=== PATIENT | male | born 1980 | race Caucasian/White ===

== ENCOUNTER 2021-04-27 15:00 | Outpatient (RCR) | payer OTHER, SELFPAY ==
--- NOTE | 2021-04-19 17:52 | MHC.PT.EP ---
[facility] [place] Office [address] Wayne Peters [address] [phone] F: [phone] F: [phone] F: [phone] F: [phone] Physical Therapy Plan of Care Date of Evaluation: Date of Surgery: n/a Diagnosis: Pain in R shoulder Assessment: Patient is a 40 year old male presenting to PT with complaints of pain in his R shoulder. Pt reports onset of pain began about 1 year ago due to insidious onset and states it has just kind of gradually came on over time. He presents today with impairments in pain, +impingement tests, posture, and periscapular strength. 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 Clinical presentation today is most consistent with signs and sx associated with possible R shoulder impingement with possible RC tendonitis and pt will benefit from skilled PT to address the following problems and impairments noted upon evaluation: pain, +impingement tests, posture, and periscapular strength. These problems limit the patient with the following functional activities: reaching OH, throwing, work, ADLs. The prescribed treatment plan of care is medically necessary. Co-morbidities of HTN were identified and taken into considerations of plan of care. Pt was educated on HEP, role of PT, prognosis, POC, shoulder anatomy. Frequency and Duration: The patient will be seen 2 x week x 4 weeks Short Term Goals: Pt will demonstrate full pain free shoulder AROM equal B in 2 weeks for improved ability to reach OH. Pt will demonstrate 5/5 shoulder and periscapular strength with min to no pain in 2 weeks for improved UE strength. Pt will demonstrate improved postural awareness by sitting with biomechanically correct posture without cues throughout session to improve overall postural function in 2 weeks. 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 Pt will demonstrate ability to complete all reaching OH ADLs with min to no pain in 4 weeks to allow return to PLOF. Pt will demonstrate improved SPADI score by 13 points in 4 weeks for improved UE functional mobility. Treatment Plan: Modalities to reduce pain, spasms and effusion. Manual therapy to restore motion and function. Therapeutic exercise to improve strength and flexibility. Neuromuscular re-education for posture and balance. Therapeutic activities to return to functional activities of daily living. Electronically signed by: Natalie Harden, PT, DPT, ATC Please sign and return to therapist. Thank you for your referral.
--- NOTE | 2021-05-09 15:26 | MHC.PT.DC ---
[facility] [place] [facility] [place] Office [place] [address] Wayne Peters [address] [phone] F: [phone] F: [phone] F: [phone] F: [phone] Physical Therapy Discharge Report Diagnosis: Pain in R shoulder Date of Surgery: n/a Date of Evaluation: 04/19/21 Date of Discharge: 05/09/21 Treatments to Date: 2 Cancellations to Date: 2 No Shows to Date: 0 Discharge Status: Patient Elected to Stop Discharge Summary: Pt has self d/c from skilled PT due to work conflicts. Electronically signed by: Natalie Harden, PT, DPT, ATC Please sign and return to therapist. Thank you for your referral.
== END 2021-05-09 15:28 | disposition home or self-care (01) ==
LOC: HO.PT 15:00
PROVIDERS: PCP Internal Medicine; Visit Provider Internal Medicine
DX: M25.511 Pain in right shoulder (principal)
CPT/HCPCS: 97014; 97110; 97161

== ENCOUNTER 2023-02-01 14:12 | Outpatient (AMB) | payer OTHER, SELFPAY ==
--- NOTE | 2023-02-01 14:14 | AM.OFFWIN_ITS ---
Intake Vital Signs 02/01/23 14:17 Height 5 ft 9 in Weight 259 lb BMI 38.2 BP 120/90 H Blood Pressure Location Rt brachial Position Sitting Pulse 74 Pulse Source Pulse Oximeter Temp 97.8 F Temp Source Temporal Artery Scan Pulse Oximetry (%) 97 Oxygen Delivery Method Room Air Intake Visit Reasons: RUNNER OUT, swelling left side of face Intake Note: Patient here for left face swelling. he states he went to the dentist on saturday and was started on antibiotics(amox 500mg for 10 days) he just wants to make sure its nothing serious. Patient Tobacco Use Status: Never used Tobacco Allergies No Known Allergies Allergy (Unknown, Verified 02/01/23 14:19) NOT APPLICABLE Do you need a note to return to daycare/school/sports/work: No HPI HPI Comments 2 History of Present Illness Details This is a 42-year-old male who presents to the office today for sick visit. Patient complaining of worsening left-sided facial swelling x4 days. atient states he had left-sided facial swelling that started approximately 4 days ago. Patient states he was seen by his dentist 4 days ago and he was started on amoxicillin for a dental infection. He states he has been taking this medication as prescribed. He states the facial swelling has been slowly worsening over the past 2 days. He denies any throat swelling, difficulty swallowing, shortness of breath, or wheezing. He denies any fevers or chills. Of note, patient has taken penicillin and he believes amoxicillin in the past without difficulty. [facility] Medical History Chronic GERD Class 2 obesity with body mass index (BMI) of 37.0 to 37.9 in adult Essential hypertension Mild persistent asthma, uncomplicated Right shoulder pain Surgical History No pertinent past surgical history Family History Father Hypertension Mother No problems noted. Maternal Grandfather Cancer Hypertension Diabetes Stroke Brother Drug overdose Family/Other FH: mental illness Social History (Updated 01/16/22 @ 16:21 by Pily Carrera MD) Housing: House Alcohol intake: current Alcohol intake frequency: a few times a month Alcohol type: beer, wine and hard liquor Patient Tobacco Use Status: Never used Tobacco e-Cigarette/Vaping Use: Never Used Second Hand Smoke Exposure: No service: No Current occupational status: unemployed Cognitive needs: No Hearing needs: No Vision needs: No Review of Systems Const All systems reviewed & are unremarkable except as noted in HPI and below Reports no additional complaints Eyes Reports no additional complaints ENT Reports no additional complaints Card Reports no additional complaints Resp Reports no additional complaints GI Reports no additional complaints Reports no additional complaints Musc Reports no additional complaints Skin/Breast Reports system reviewed and no additional complaints, except as documented Neuro Reports no additional complaints Psych Reports no additional complaints Endo Reports no additional complaints Hernando/Lymph Reports no additional complaints Aller/Immun Reports no additional complaints Physical Exam Vital Signs: Last Vital Signs Temp 97.8 F 02/01/23 14:17 Pulse 74 02/01/23 14:17 BP 120/90 H 02/01/23 14:17 Pulse Ox 97 02/01/23 14:17 Oxygen Delivery Method Room Air 02/01/23 14:17 BMI result Body Mass Index 38.2 Const General: cooperative, healthy appearing, no acute distress and well developed Orientation/consciousness: patient oriented x3 HEENT Other: Left-sided facial swelling of the cheek and periorbital area. No erythema or rash. Mild gingivitis of the left upper posterior teeth. No edema of the posterior oral pharynx or tonsils. Head: Yes normal to inspection Ears: hearing grossly normal bilaterally General nose exam: Normal external nose present Mouth: Normal oral and palatal mucosa present Teeth and gingiva: gingiva abnormal edematous and diffusely erythematous Throat: Yes posterior oropharynx normal, Yes tonsils normal, No peritonsillar mass, No uvula laterally displaced and No uvular edema Eyes General: appearance normal, both eyes and all related structures Pupils: Equal, round and reactive pupils present EOM: EOMs intact bilaterally Resp Effort & Inspection: normal respiratory effort and no respiratory distress Auscultation: clear to auscultation bilaterally Cardio Rate: regular rate Rhythm: regular rhythm Heart sounds: no gallops, no murmurs and no rubs Peripheral pulses: Peripheral pulses 2+ throughout GI Inspection: No distended Palpation (GI): Soft to palpation and nontender Auscultation: normal bowel sounds Skin General skin exam: no rashes or lesions noted Neuro General: patient oriented x3 Cranial nerves: Yes CN's II-XII intact bilaterally and Yes Equal, round and reactive pupils present Gait exam (Neuro): Normal gait present Motor exam (neuro): 5/5 motor strength present throughout Extrem General: Yes normal to inspection, Yes full ROM and Yes no clubbing, cyanosis or edema Psych Appearance: grossly normal Mental Status: mental status grossly normal Assessment & Plan Assessment & Plan (1) Dental infection: Code(s): K04.7 - Periapical abscess without sinus Plan: This is a 42-year-old male presenting with worsening left-sided facial swelling x4 days. He was started on p.o. amoxicillin for a dental infection but states that this facial swelling is still worsening. He appears to have a mild gingivitis of the left upper posterior teeth. Of note, angioedema was considered given his facial swelling seemed to worsen after he was given amoxicillin but patient confirms that he has taken penicillin and he believes amoxicillin in the past. He has no erythema or rash to suggest an allergic etiology. He denies any throat swelling, trouble/difficulty swallowing, shortness of breath, or wheezing. Patient was switched to p.o. amoxicillin clavulanate for more anaerobic coverage. He was advised to proceed directly to the emergency room if he were to develop worsening swelling, throat swelling, difficulty/trouble swallowing, difficulty breathing, or wheezing. Patient verbalizes his understanding and he is in agreement with the plan. Medications: New amoxicillin-pot clavulanate 875-125 mg 1 tab PO BID 14 tabs 0RF Coding Level of Care Code Est Pt Level 3 (02627) Diagnoses Dental infection K04.7
[2023-02-01 14:17] VITALS: BP 120/90; PULSE 74; TEMP 36.6; O2SAT 97; BMI 38.2
== END 2023-02-01 14:56 | disposition home or self-care (01) ==
PROVIDERS: PCP Internal Medicine; Visit Provider Physician Assistant Medical
DX: K04.7 Periapical abscess without sinus (principal)
CPT/HCPCS: 99213

== ENCOUNTER 2023-02-03 05:23 | Emergency (ER) | payer OTHER, SELFPAY ==
[2023-02-03 05:24] VITALS: BP 134/93; PULSE 81; RESP 18; TEMP 37.2; O2SAT 96; BMI 37.1
--- NOTE | 2023-02-03 05:29 | ED_ITS ---
HPI - General Adult General Chief complaint: Dental/Oral Stated complaint: allergic reaction Time Seen by Provider: 02/03/23 05:28 Source: patient Mode of arrival: ambulatory Limitations: no limitations History of Present Illness HPI narrative: Patient presents with swelling and dental pain. Symptoms started several days ago. Was started on amoxicillin and told might be a wisdom tooth. His plans to be extracted over the next week. However, over the past day or so he has had increasing swelling to left side of his face, itching over his face. He denies any difficulty breathing or swallowing. He is able to control his secretions. He denies any fevers or chills. Pain is moderate nature. There is no clear relieving or exacerbating features. Patient was seen yesterday the day before yesterday. Switch from amoxicillin to Augmentin. Had not yet started that prescription. Related Data Previous Rx's Medication Instructions Recorded fluticasone propionate 50 1 spray intranasal DAILY #16 mL 12/25/20 mcg/actuation nasal spray,suspension omeprazole 20 mg capsule,delayed 20 mg PO DAILY 90 days #90 caps 09/04/21 release fluticasone propionate 44 1 puff inhalation BID 30 days 10/05/21 mcg/actuation HFA aerosol inhaler #10.6 grams (Flovent HFA) erythromycin 5 mg/gram (0.5 %) eye 1 appl ophthalmic (eye) DAILY 5 05/29/22 ointment days #3.5 grams albuterol sulfate 90 mcg/actuation 2 puff inhalation Q6H PRN 06/18/22 aerosol inhaler (ProAir HFA) shortness of breath or wheezing 30 days #6.7 grams Ventolin HFA 90 mcg/actuation 2 puff inhalation Q6H PRN 07/17/22 aerosol inhaler (albuterol sulfate) shortness of breath or wheezing 30 days #8 grams amlodipine 10 mg tablet 10 mg PO DAILY 90 days #90 tabs 08/10/22 lisinopril 10 mg tablet 10 mg PO DAILY #30 tabs 10/08/22 amoxicillin 875 mg-potassium 1 tab PO BID #14 tabs 02/01/23 clavulanate 125 mg tablet Allergies Allergy/AdvReac Type Severity Reaction Status Date / Time No Known Allergies Allergy Unknown NOT Verified 02/03/23 05:29 APPLICABLE Review of Systems Review of Systems: CONSTITUTIONAL: Denies weight loss, fever and chills. HEENT: Denies changes in vision and hearing. Dental pain RESPIRATORY: Denies SOB and cough. CV: Denies palpitations no CP. GI: Denies abdominal pain, nausea, vomiting and diarrhea. : Denies dysuria and urinary frequency. MSK: Denies myalgia and joint pain. SKIN: Denies rash and pruritus. NEUROLOGICAL: Denies headache and syncope. PSYCHIATRIC: Denies recent changes in mood. Denies anxiety and depression. All other ROS are negative unless in HPI [facility] Past Medical History Medical History Chronic GERD Class 2 obesity with body mass index (BMI) of 37.0 to 37.9 in adult Essential hypertension Mild persistent asthma, uncomplicated Right shoulder pain Surgical History No pertinent past surgical history Family History Family History Father Hypertension Mother No problems noted. Maternal Grandfather Cancer Hypertension Diabetes Stroke Brother Drug overdose Family/Other FH: mental illness Social History Social History Housing: House Alcohol intake: current Alcohol intake frequency: holidays/special occasions only Alcohol type: beer Patient Tobacco Use Status: Never used Tobacco e-Cigarette/Vaping Use: Never Used Second Hand Smoke Exposure: No service: No Current occupational status: unemployed Cognitive needs: No Hearing needs: No Vision needs: No Physical Exam ED Vital Signs: Vital Signs - 24 hr 02/03/23 05:24 02/03/23 05:34 Temperature 99.0 F 97.9 F Pulse Rate 81 79 Respiratory Rate 18 17 Blood Pressure 134/93 H 130/88 Pulse Oximetry 96 95 Oxygen Delivery Method Room Air Room Air BMI result Body Mass Index 37.1 GEN: Well developed, no acute distress, alert, oriented HEENT: Normocephalic, atraumatic, normal external ears, nose appears normal no oropharyngeal edema, no tonsillar enlargement, no she fluctuant surfaces, dental fillings in place, left facial swelling Eyes: Normal to appearance Neck: Supple, no lymphadenopathy Respiratory: Talks in complete sentences, no respiratory distress Extremities: No clubbing cyanosis or edema Neurologic: No focal neurologic deficits, cranial nerves 2-12 intact, gait normal Skin: No rash Medical Decision Making Medical Decision Making MDM Narrative: Patient presents with life facial swelling. This is possible for a dental infection. Patient will switch from amoxicillin to Augmentin. Will take anti- inflammatory pain medications. He does have some facial itching. I do not believe this represents an allergic reaction. Patient will start Zyrtec or Hayde which is available [id number]. He will return for any worsening or concerning symptoms. Differential Diagnosis Differential Diagnoses: The differential diagnosis associated with the presentation includes (Dental infection, sinusitis) Prescription Management I considered prescription management with: Pain Medication and Antibiotic Discharge Plan Discharge Clinical Impression: Dental abscess Patient Disposition: Home, Self-Care Instructions: Dental Abscess (ED) Additional Instructions: Stop amoxicillin Start amoxicillin with clavulanic acid Take Zyrtec or Hayde daily for 5-7 days Prescriptions: No Action fluticasone propionate 50 mcg/actuation spray,suspension 1 spray intranasal DAILY Qty: 16 4RF omeprazole 20 mg capsule,delayed release(DR/EC) 20 mg PO DAILY 90 Days Qty: 90 1RF erythromycin 5 mg/gram (0.5 %) ointment 1 appl ophthalmic (eye) DAILY 5 Days Qty: 3.5 0RF albuterol sulfate [ProAir HFA] 90 mcg/actuation HFA aerosol inhaler 2 puff inhalation Q6H PRN (Reason: shortness of breath or wheezing) 30 Days Qty: 6.7 0RF albuterol sulfate [Ventolin HFA] 90 mcg/actuation HFA aerosol inhaler 2 puff inhalation Q6H PRN (Reason: shortness of breath or wheezing) 30 Days Qty: 8 0RF amlodipine 10 mg tablet 10 mg PO DAILY 90 Days Qty: 90 3RF lisinopril 10 mg tablet 10 mg PO DAILY Qty: 30 6RF amoxicillin-pot clavulanate 875-125 mg tablet 1 tab PO BID Qty: 14 0RF Flovent HFA 44 mcg/actuation HFA aerosol inhaler 1 puff inhalation BID 30 Days Qty: 10.6 4RF Rx Instructions: administer with spacer Referrals: Physician,Unknown J [Primary Care Provider] - (Your dentist as scheduled)
[2023-02-03 05:34] VITALS: BP 130/88; PULSE 79; RESP 17; TEMP 36.6; O2SAT 95
== END 2023-02-03 05:52 | disposition home or self-care (01) ==
PROVIDERS: Emergency Provider Emergency Medicine
DX: K08.89 Other specified disorders of teeth and supporting structures (principal); K04.7 Periapical abscess without sinus
CPT/HCPCS: 99282; 99284

== ENCOUNTER 2024-08-10 16:55 | Outpatient (AMB) | payer OTHER, SELFPAY ==
[2024-08-10 17:03] VITALS: BP 150/90; BMI 37.5
--- NOTE | 2024-08-10 17:03 | MHC.PC.OV ---
Vital Signs 08/10/24 17:03 Height 5 ft 9 in Weight 254 lb BMI 37.5 BP 150/90 H Blood Pressure Location Lt brachial Position Sitting Intake Visit Reasons: BP follow up Intake Note: Patient here for a follow up BP Salvage Determiner Required: No Accompanied by: Self / Same As Patient Allergies No Known Allergies Allergy (Unknown, Verified 08/10/24 17:20) NOT APPLICABLE Medication List - Last Reconciled 08/10/24 by Pily Carrera MD amlodipine 10 mg PO DAILY 90 days fluticasone propionate 44 mcg/actuation 1 puff inhalation BID 30 days lisinopril 10 mg PO DAILY omeprazole 20 mg PO DAILY 90 days Ventolin HFA 90 mcg/actuation (albuterol sulfate) 2 puffs inhalation Q6H PRN 30 days NS Tobacco use date assessed: 08/10/24 Dental Screening Dental Screen Date: 08/10/24 Did you have a dental visit in the last 12 months?: No Did you have a dental problem in the last 6 months where you did not have access to dental care?: No Was dental information given to patient?: Patient has dentist HPI HPI Comments History of Present Illness Details The patient is a 43-year-old male presenting with management needs for elevated blood pressure, asthma, and right shoulder pain. He has a history of Essential Hypertension, previously controlled with amlodipine and lisinopril. Medication adherence was disrupted last year due to insurance issues, but recent resumption has led to symptomatic improvement. The patient reports leg swelling associated with amlodipine use. The patient's asthma is moderate persistent, requiring short-term inhaler use 4 times weekly. Management with a long-term inhaler was not sustained due to insurance changes. Gastroesophageal Reflux Disease (GERD) is managed with omeprazole. The patient reports right shoulder pain, suggesting rotator cuff involvement, which is aggravated by arm elevation and has not been improved due to a lapse in physical therapy attendance. [facility] Medical History (Updated 08/10/24 @ 17:35 by Pily Carrera MD) Class 2 obesity with body mass index (BMI) of 37.0 to 37.9 in adult Right shoulder pain Chronic GERD Essential hypertension Surgical History No pertinent past surgical history Family History Father Hypertension Mother No problems noted. Maternal Grandfather Cancer Hypertension Diabetes Stroke Brother Drug overdose Family/Other FH: mental illness Social History Housing: House Alcohol intake: current Alcohol intake frequency: holidays/special occasions only Alcohol type: beer Patient Tobacco Use Status: Never used Tobacco e-Cigarette/Vaping Use: Never Used Second Hand Smoke Exposure: No service: No Current occupational status: unemployed Cognitive needs: No Hearing needs: No Vision needs: No Questionnaire PHQ-9 Over the last 2 weeks, how often have you been bothered by any of the following problems? 1. Little interest or pleasure in doing things: not at all 2. Feeling down, depressed, or hopeless: not at all 3. Trouble falling or staying asleep, or sleeping too much: not at all 4. Feeling tired or having little energy: not at all 5. Poor appetite or overeating: not at all 6. Feeling bad about yourself - or that you are a failure or have let yourself or your family down: not at all 7. Trouble concentrating on things, such as reading the newspaper or watching television: not at all 8. Moving or speaking so slowly that other people could have noticed. Or the opposite - being so fidgety or restless that you have been moving around a lot more than usual: not at all 9. Thoughts that you would be better off or of hurting yourself in some way: not at all Total score: 0 Depression Screening Interpretation: Negative Depression Screening Done: Yes 98538 - PHQ-9 Billing: Yes Source: Developed by Drs. Robbi Zepeda, Narcisa Sánchez, Robbie Matthew and colleagues, with an educational oleksandr from [employer]. Thrive Questionnaire Date Thrive assessed: 08/10/24 I am a: Patient What is your living situation today?: I have a steady place to live Within the past 12 months, did the food you bought not last and you didn't have the money to get more?: Never true Within the past 12 months, did you worry whether your food would run out before you got money to buy more?: Never true Do you have trouble paying for medicines?: No Do you have trouble getting transportation to medical appointments?: No Do you have trouble paying your heating and electricity bill?: No Do you have trouble taking care of your child, family member or friend?: No Do you have trouble with day-to-day activities such as bathing, preparing meals, shopping, managing finances, etc.?: No Are you currently unemployed and looking for a job?: No Are you interested in more education?: No Please select the resources that you would like help with: None Currently or been in a relationship where the following occur: No concerns reported THRIVE Score: 0 AUDIT C Alcohol Use Questionnaire (AUDIT-C) 1. How often do you have a drink containing alcohol?: Monthly or less 2. How many drinks containing alcohol do you have on a typical day when you are drinking?: 1 or 2 3. How often do you have six or more drinks on one occasion?: Never Total Score: 1 Score Reviewed/Action Taken: No KANDICE-7 AMB Questionnaire KANDICE-7 Date KANDICE - 7 assessed: 08/10/24 Feeling nervous, anxious, or on edge: 0 = Not at all Not being able to stop or control worryin = Not at all Worrying too much about different things: 0 = Not at all Trouble relaxin = Not at all Being so restless that it is hard to sit still: 0 = Not at all Becoming easily annoyed or irritable: 0 = Not at all Feeling afraid as if something awful might happen: 0 = Not at all Total KANDICE-7 score (0-4 normal; 5-9 mild; 10-14 moderate; 15-21 severe): 0 Source: Developed by Drs. Robbi Zepeda, Narcisa Sánchez, Robbie Matthew and colleagues, with an educational oleksandr from [employer]. KANDICE-7 Assessment Billing KANDICE-7 Assessment Tool: KANDICE-7 Assessment 77719 Review of Systems Const All systems reviewed & are unremarkable except as noted in HPI and below Card Denies chest pain at rest, Denies chest pain with activity, Denies edema, Denies irregular heart rhythm, Denies claudication, Denies dyspnea, Denies dyspnea on exertion, Denies orthopnea, Denies paroxysmal nocturnal dyspnea and Denies slow heart rate Resp Denies cough, Denies dyspnea and Denies dyspnea on exertion GI Denies abdominal pain, Denies change in bowel habits, Denies excessive flatus, Denies nausea and Denies vomiting Musc Denies atrophy, Denies deformity, Reports arthralgias and Reports limited range of motion Physical exam (Primary Care) Vital Signs: Last Vital Signs BP 150/90 H 08/10/24 17:03 BMI result Body Mass Index 37.5 BMI Assessment/Plan discussion: High BMI High, discussed plan: lifestyle, weight reduction, dietary and physical activity Tobacco/Smoking Status: Tobacco use Status Tobacco use date assessed 08/10/24 08/10/24 17:13 Patient Tobacco Use Status Never used Tobacco 08/10/24 17:08 e-Cigarette/Vaping Use Never Used 08/10/24 17:08 PHQ-9: PHQ-9 Score PHQ-9: Total score 0 08/10/24 17:13 Depression Screening Interpretation: Negative Thrive Assessment: Date of Thrive Assessment Date Thrive assessed 08/10/24 08/10/24 17:13 Currently or been in a relationship where the following occur: No concerns reported Resp Effort & Inspection: normal respiratory effort Auscultation: clear to auscultation bilaterally Cardio Jugular venous distension: no JVD Rate: regular rate Rhythm: regular rhythm Heart sounds: S1 normal heart sound present and S2 normal heart sound present Extrem General: Yes full ROM Coding Level of Care Code Est Pt Level 4 (68851) Complex EM visit Add On G2211 Diagnoses Chronic right shoulder pain M25.511; G89.29 Chronicity: chronic Moderate persistent asthma J45.40 Chronic GERD K21.9 Essential hypertension I10 Additional Codes PHQ-9 - 65789 - PHQ-9 Billing: Yes ([id number]) KANDICE-7 Assessment Billing - KANDICE-7 Assessment Tool: KANDICE-7 Assessment 85392 ([id number]) Time Spent (min) 22 Assessment & Plan Assessment & Plan (1) Right shoulder pain: Code(s): M25.511 - Pain in right shoulder Category: Medical Qualifiers: Chronicity: chronic Qualified Code(s): M25.511 - Pain in right shoulder; G89.29 - Other chronic pain (2) Moderate persistent asthma: Code(s): J45.40 - Moderate persistent asthma, uncomplicated Category: Medical (3) Chronic GERD: Code(s): K21.9 - Gastro-esophageal reflux disease without esophagitis Category: Medical (4) Essential hypertension: Code(s): I10 - Essential (primary) hypertension Category: Medical Plan The patient?s Essential Hypertension will be managed with a modified medication regimen, adjusting amlodipine to 5 mg and increasing lisinopril to 20 mg to address hypertension control and minimize side effects. Bloodwork is planned in four months to assess overall metabolic health, focusing on organ function and lipid profile. Asthma management involves prescribing a long-term inhaler, addressing moderate persistent symptoms and frequent rescue inhaler use. Gastroesophageal Reflux Disease management will continue with omeprazole. For right shoulder pain, a physical therapy referral is made, considering an orthopedic referral if physical therapy does not yield improvement. Patient was informed and verbally consented to the use of an ambient scribe for clinic note documentation during this visit. I discussed the management plan including medication adjustments for hypertension, prescribing a long-term inhaler for asthma, and continuation of omeprazole for GERD. We reviewed the potential contribution of amlodipine to leg swelling, opting for dosage modification. The benefits of physical therapy for shoulder pain and alternative orthopedic intervention if necessary were also outlined. The patient agreed to comply with follow-up bloodwork in four months and understood the need for consistent medication adherence and therapy attendance. The patient was receptive to all discussed plans and expressed understanding. Orders: Orders Comprehensive [place]. Panel Fast 4 Months I10 - Essential (primary) hypertension PT Evaluation and Treatment Today M25.511 - Pain in right shoulder Lipid Panel 4 Months E78.5 - Hyperlipidemia, unspecified, I10 - Essential (primary) hypertension Medications: New umeclidinium-vilanterol 62.5-25 mcg/actuation (Anoro Ellipta) 1 inh inhalation DAILY 60 days 60 ea 0RF J45.40 - Moderate persistent asthma, uncomplicated amlodipine 5 mg PO DAILY 90 days 90 tabs 1RF I10 - Essential (primary) hypertension lisinopril 20 mg PO DAILY 90 days 90 tabs 1RF I10 - Essential (primary) hypertension Refilled Ventolin HFA 90 mcg/actuation (albuterol sulfate) 2 puffs inhalation Q6H 30 days PRN 8 grams 0RF shortness of breath or wheezing NS Discontinued amlodipine Discontinued Reason: Patient Completed Course 10 mg PO DAILY 90 days 90 tabs 3RF Patient Instructions: - Continue current medications with adjustments: amlodipine 5 mg and lisinopril 20 mg. - Complete bloodwork in four months. - Start using prescribed long-term inhaler daily for asthma. - Maintain omeprazole for GERD. - Attend physical therapy sessions for right shoulder. - Follow up as advised. - Return if symptoms worsen or new symptoms develop.
--- OUTSIDE RECORDS SUMMARY | 2024-08-10 19:05 | XMS_ITS | Clinical Summary ---
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 Periodontal disease 01/29/2023 Dental abscess 01/29/2023 Extruded tooth 01/29/2023 Social History Tobacco Use Types Packs/Day Years Used Date Smoking Tobacco: Never Passive Smoke Exposure: Never Smokeless Tobacco: Never Tobacco Cessation:Counseling Given: No Alcohol Use Standard Drinks/Week Comments Never 0 (1 standard drink = 0.6 oz pur e alcohol) Sex and Gender Information Value Date Recorded Sex Assigned at Male 01/29/2023 8:57 AM EDT Legal Sex Male 8:57 AM EDT Gender Identity Male 01/29/2023 8:57 AM EDT Sexual Orientation Don't know 01/29/2023 8: 57 AM EDT Last Filed Vital Signs Vital Sign Reading Time Taken Comments Blood Pressure 134/74 02/21/2023 9:51 AM EDT Pulse - - Temperature - - Respiratory Rate - - Oxygen Saturation - - Inhaled Oxygen Concentration - - Weight - - Height - - Body Mass Index - - Plan of Treatment Health Maintenance Due Date Last Done Comments Dental Oral Exam 1981 Dental Prophylaxis 1981 Dental X-Ray: Bitewings 1981 Depression Screening 1981 HIV Screening 1981 Lipid Panel 1981 SDOH Screening 1981 Alcohol/Substance Use Screening 1993 Family Planning (PISQ) 1996 Hepatitis C Screening 08/12/1999 Hepatitis B Vaccines (1 of 3 - 19+ 3-dose series) 2000 COVID-19 Vaccine (2023-2 5 season) 2024 10/13/2020, 09/22/2020 Influenza Vaccine (#1) 2024 Tobacco Screening 02/22/2024 02/21/2023 Dental X-Ray: Full Mouth 01/30/2026 01/29/2023 DTaP/Tdap/Td Vaccines (2 - T d or Tdap) 01/01/2027 01/01/2017 Zoster Vaccines (1 of 2) 08/12/2031 RSV Patients and Patients Aged 60 years or older (1 - 1-dose 75+ series) 2056 HIB Vaccines Aged Out No longer eligi ble based on patient's age to complete this topic HPV Vaccines Aged Out No longer eligi ble based on patient's age to complete this topic Hepatitis A Vaccines Aged Out No long er eligible based on patient's age to complete this topic IPV Vaccines Aged Out No longer eligi ble based on patient's age to complete this topic Meningococcal Vaccine Aged Out No sherman yunier eligible based on patient's age to complete this topic Pneumococcal Vaccine: Pediatrics (0 to 5 Years) and At-Risk Patients (6 to 49) Years) Aged Out No longer eligible b ased on patient's age to complete this topic RSV under 20 months Aged Out No longe r eligible based on patient's age to complete this topic Rotavirus Vaccines Aged Out No longer eligible based on patient's age to complete this topic Procedures Procedure Name Priority Date/Time Associated Diagnosis Comments PANORAMIC RADIOGRAPHIC IMAGE Routine 01/29/2023 1:00 PM EDT from Last 3 Months or Most Recently Relevant to Health Maintenance Insurance [employer] STAND ADULT
--- OUTSIDE RECORDS SUMMARY | 2024-08-10 19:05 | XMS_ITS | Data Portability ---
Author Organization [facility] [address] Address [address] [place] [address] Assessment No assessment recorded. Plan of Treatment Reminders Order Date Submit Date Provider Last Modified By Organization Details Last Modified Time Details Appointments None record ed. Lab None record ed. Referral None record ed. Procedures None record ed. Surgeries None record ed. Imaging None record ed. Medication Orders None record ed. Patient TargetsNo targets recorded. Patient Instructions Encounter Date Encounter Id Patient Instructions Last Modified By Organization Details Last Modified Time 01/24/2023 [id number] This physical does not replace the annual physical to be performed by your PCP. There may be additional screening tests that they will perform that we do not in the urgent care setting. Failure to follow up as recommended may result in significant adverse health consequences. ? If your symptoms worsen or you develop new symptoms that concern you, go to the emergency department for further evaluation. [email or web address] Not available 01/24/2023 11:15:00 Reason for Referral None Reported. Procedures Surgical History Date Name Laterality Status Provider Name and Address Organization Details Recorded Time [facility] completed [facility] 01/24/2023 10:40:27 Imaging Results None recorded. Procedure Notes None recorded. Medical Equipment None Reported. Vitals None Recorded Social History None recorded. Functional Status None recorded. Mental Status None recorded. Family History Nothing Reported. Medical History No medical history recorded. Past Encounters Encounter ID Performer Location Encounter Start Date Encounter Closed Date Diagnosis/Indication Diagnosis SNOMED-CT Code Diagnosis ICD10 Code Diagnosis Note [id number] [address] [address] 03/28/2018 08:09:54 03/28/2018 08:37:28 [id number] [place] [address] [place] [address] 01/24/2023 09:51:41 01/24/2023 11:28:07 Extruding Press Operator license medical examination [id number] Z02.4 Physical examination 588 0005 Z02.4 History an d physical examination, pre-employment [id number] Z02.1 Health Concerns Section Related Observation LastModified by Organization Detai ls LastModified Time None Recorded Concern Status LastModified by Organization Details LastModified Time None Recorded Advance Directives Directive None Recorded Payers Encounter Date Sequence Insurance Name Policy Number Policy Rand Covered Member ID Rand Member ID Guarantor Name 01/24/2023 [employer] Umer Bay [employer] Umer Bay Notes Date Note Type Note Provider Name a nd Address Organization Details Recorded Time 01/24/2023 text/html physical Sunny Nair NP [address] [place], [address], [place] - [facility] 01/24/2023 11:15:25
== END 2024-08-10 17:30 | disposition home or self-care (01) ==
PROVIDERS: Visit Provider Internal Medicine
DX: M25.511 Pain in right shoulder (principal); G89.29 Other chronic pain; J45.40 Moderate persistent asthma, uncomplicated; K21.9 Gastro-esophageal reflux disease without esophagitis; I10 Essential (primary) hypertension

== ENCOUNTER → 2024-08-10 16:55 | Outpatient (BNVA) | payer OTHER, SELFPAY | PROVIDERS: Visit Provider Internal Medicine | DX: I10 Essential (primary) hypertension (principal); M25.511 Pain in right shoulder; G89.29 Other chronic pain; J45.40 Moderate persistent asthma, uncomplicated; K21.9 Gastro-esophageal reflux disease without esophagitis; Z79.899 Other long term (current) drug therapy | CPT/HCPCS: 96127 ==

== ENCOUNTER 2024-11-17 16:40 | Outpatient (RCR) | payer OTHER, SELFPAY ==
--- NOTE | 2024-10-30 13:17 | MHC.PT.EP ---
[facility] [place] Office [place] Office [place] Office [address] Wayne Peters [address] [phone] F: [phone] F: [phone] F: [phone] F: [phone] Physical Therapy Plan of Care Date of Evaluation: 10/29/24 Date of Surgery: Diagnosis: Pain in right shoulder Right shoulder pain Assessment: Pt is a pleasant and motivated 44yo M who presents to PT with R shoulder pain. Pt presents to PT with current impairments in pain, decreased ROM, decreased strength, soft tissue restrictions, and impaired posture. He is limited functionally by lifting, driving, carrying, overhead ADLs, and throwing. He is an excellent candidate for skilled PT in order to address current impairments to facilitate return to PLOF. He is recommended to be seen 2x/week for 4 weeks and will be reassessed at that time Frequency and Duration: The patient will be seen 2x/week for 4 weeks Short Term Goals: Pt will be I with HEP to promote self management of symptoms Pt will improve R shoulder flexion by at least 10 degrees Mcfp Goals: Pt will achieve full ROM and strength all planes of right shoulder to assist with lifting and reaching Pt will demonstrate ability to throw ball to facilitate return to pain-free softball Pt will demonstrate improvements in function as evidenced by statistically significant improvement in SPADI outcome measure Treatment Plan: Modalities to reduce pain, spasms and effusion. Manual therapy to restore motion and function. Therapeutic exercise to improve strength and flexibility. Neuromuscular re-education for posture and balance. Therapeutic activities to return to functional activities of daily living. Electronically signed by: Elaina Mckeon, PT, DPT Please sign and return to therapist. Thank you for your referral.
--- NOTE | 2024-12-07 12:05 | MHC.PT.DC ---
[facility] [place] Office [place] Office [place] Office [address] Wayne Peters [address] [phone] F: [phone] F: [phone] F: [phone] F: [phone] Physical Therapy Discharge Report Diagnosis: Pain in right shoulder Right shoulder pain Date of Surgery: Date of Evaluation: 10/29/24 Date of Discharge: 12/07/24 Treatments to Date: 2 Cancellations to Date: 3 No Shows to Date: 2 Discharge Status: Visit Non-compliance Discharge Summary: Pt was seen for skilled PT from 10/29/24-11/17/24. His last attended appointment was 11/17/24. He has had 3 cancellations and 2 no show appointments since SOC. He is being D/C from skilled PT per [facility] attendance policy and visit non compliance. Pt current level of function unknown at this time Electronically signed by: Elaina Mckeon, PT, DPT Please sign and return to therapist. Thank you for your referral.
== END 2024-12-07 12:04 | disposition home or self-care (01) ==
LOC: HO.PT 16:40
PROVIDERS: PCP Internal Medicine; Visit Provider Internal Medicine
DX: M25.511 Pain in right shoulder (principal)
CPT/HCPCS: 97110; 97161

== ENCOUNTER 2024-11-19 08:41 | Outpatient (REF) | payer OTHER, SELFPAY ==
--- NOTE | ~2024-11-19 | XR_ITS ---
CLINICAL HISTORY: M25.511 - Pain in right shoulder 2 view right shoulder Comparison: None Findings: No fracture or dislocation. Moderate glenohumeral osteoarthritis. The acromioclavicular joint is unremarkable. IMPRESSION: Moderate glenohumeral osteoarthritis. This document has been electronically signed by: Channing Aviles DO on 11/20/2024 11:23:41
--- OUTSIDE RECORDS SUMMARY | 2024-11-20 08:52 | XMS_ITS | Clinical Summary ---
Author Organization [employer] Address [address] [facility] [address] [place] [address] Care Team Providers Care Crm Functional Analyst Name Role Phone Unavailable Primary Care Provider [...] Most Recently Relevant to Health Maintenance [facility] ST[facility]ULT
== END 2024-11-19 08:42 | disposition home or self-care (01) ==
LOC: HO.HOSX 08:41
PROVIDERS: Visit Provider Orthopaedic Surgery
DX: M25.811 Other specified joint disorders, right shoulder (principal); G89.29 Other chronic pain
CPT/HCPCS: 20610; 73030; J1010; J2003

== ENCOUNTER 2024-11-19 13:40 | Outpatient (AMB) | payer OTHER, SELFPAY ==
--- NOTE | 2024-11-19 13:53 | A.OFFVIS_ITS ---
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 The patient states that most of the pain is along the lateral aspect of his shoulder. He has injured his right shoulder several times over the last few years while playing football and softball. He reports mild weakness when lifting his hand above shoulder height. He has tried Tylenol and anti-inflammatory medicines which gave him minimal relief. He has not had an injection. Allergies No Known Allergies Allergy (Unknown, Verified 11/19/24 14:04) NOT APPLICABLE Medication List - Last Reconciled 11/19/24 by Waldo Lemon MD amlodipine 5 mg PO DAILY 90 days lisinopril 20 mg PO DAILY 90 days omeprazole 20 mg PO DAILY 90 days umeclidinium-vilanterol 62.5-25 mcg/actuation (Anoro Ellipta) 1 inh inhalation DAILY 60 days Ventolin HFA 90 mcg/actuation (albuterol sulfate) 2 puffs inhalation Q6H PRN 30 days NS [facility] Medical History (Updated 11/20/24 @ 09:32 by Waldo Lemon MD) Class 2 obesity with body mass index (BMI) of 37.0 to 37.9 in adult Right shoulder pain Chronic GERD Essential hypertension Surgical History No pertinent past surgical history Family History Father Hypertension Mother No problems noted. Maternal Grandfather Cancer Hypertension Diabetes Stroke Brother Drug overdose Family/Other FH: mental illness Social History (Updated 11/19/24 @ 14:06 by MAME Fields) Housing: House Alcohol intake: current Alcohol intake frequency: holidays/special occasions only Alcohol type: beer Patient Tobacco Use Status: Never used Tobacco e-Cigarette/Vaping Use: Never Used Second Hand Smoke Exposure: No service: No Current occupational status: employed Current occupation: rt handed, truck diver Cognitive needs: No Hearing needs: No Vision needs: No Physical Exam Vital Signs: BMI result Body Mass Index 37.5 Const Other: Well-nourished well-developed very friendly male awake alert and oriented x3 in no acute distress Extrem Other: Bilateral upper extremity examination shows good capillary refill, no skin lesions noted, normal sensation light touch Right shoulder examination shows full range of motion when compared to his left shoulder, 4+ out of 5 strength with supraspinatus testing, positive impingement signs, no instability Office Procedures AMB Joint Injection/Aspiration Joint Injection/Aspiration Primary Site: right shoulder Prep: site was prepped using aseptic technique Injected: 40 mg of, DepoMedrol and 1% plain lidocaine Procedure: The patient tolerated the procedure well Coding - Large joint Procedure code (CPT) selection complete Results Reviewed Results Reviewed: X-rays of the patient's right shoulder show moderate to severe acromioclavicular joint narrowing, mild glenohumeral joint degenerative changes, a type 2 acromion, no acute bony abnormalities Assessment & Plan Assessment & Plan (1) Impingement of right shoulder: Code(s): M25.811 - Other specified joint disorders, right shoulder Category: Medical Plan Mr. Bay presents with right shoulder pain due to impingement syndrome. The risks and benefits of a right shoulder cortisone injection were discussed at length with the patient. The patient wished to proceed. He tolerated the injection well. We will hold off on an MRI for now. He will contact me prior to his follow-up appointment in 3 months should his symptoms worsen in any way. Feel free to call me at any time should questions regarding his orthopedic management arise. Thank you very much for asking me to see this very friendly gentleman. I spent 22 minutes in reviewing the patient's records and imaging studies, seeing the patient and documenting in the medical record. Orders: Orders XR shoulder RT min 2V 11/19/24 G89.29 - Other chronic pain, M25.511 - Pain in right shoulder AMB Joint Injection/Aspiration 11/19/24 M25.811 - Other specified joint disorders, right shoulder Coding Level of Care Code New Pt Level 3 (34865) Complex EM visit Add On G2211 Diagnoses Impingement of right shoulder M25.811 CPT Codes Coding - Large joint: 73301 - Large joint ([id number])
[2024-11-19 13:54] VITALS: BMI 37.5
--- OUTSIDE RECORDS SUMMARY | 2024-11-19 16:00 | XMS_ITS | Clinical Summary ---
Author Organization [employer] Address [address] [place] [address] Care Team Providers Care Technical Assistance Consultant Name Role Phone Unavailable Primary Care Provider [...] 1981 Lipid Panel 1981 SDOH Screening 1981 Disability Screening 1981 Alcohol/Substance Use Screening 1993 Family Planning (PISQ) 1996 Hepatitis C Screening 08/12/1999 Hepatitis B Vaccines (1 of + 3-dose series) 2000 COVID-19 Vaccine (2023-2 5 season) 2024 10/13/2020, 09/22/2020 Tobacco Screening 02/22/2024 02/21/2023 Influenza Vaccine (Season Ended) 2025 Dental X-Ray: Full Mouth 01/30/2026 01/29/2023 DTaP/Tdap/Td [...] patient's age to complete this topic Meningococcal B Vaccine Aged Out No l onger eligible based on patient's age to complete [...] Most Recently Relevant to Health Maintenance [facility]
== END 2024-11-19 14:29 | disposition home or self-care (01) ==
LOC: HO.HOS 13:40
PROVIDERS: Visit Provider Orthopaedic Surgery
DX: M25.811 Other specified joint disorders, right shoulder (principal)
CPT/HCPCS: 20610; 99203

== ENCOUNTER → 2024-11-19 13:46 | Outpatient (BNV) | payer OTHER, SELFPAY | PROVIDERS: Visit Provider Radiology Diagnostic Radiology | DX: M19.011 Primary osteoarthritis, right shoulder (principal) | CPT/HCPCS: 73030 ==

== ENCOUNTER 2025-02-23 14:37 | Outpatient (AMB) | payer OTHER, SELFPAY ==
--- NOTE | 2025-02-23 14:55 | MHC.OFFVIS ---
Vital Signs 02/23/25 14:58 Height 5 ft 9 in Weight 250 lb BMI 36.9 Intake Visit Reasons: Inj-right shoulder inj. last 11/19/24 Intake Note: Umer is a 44 year old male who presents with complaints of right shoulder pain. He describes his pain as sharp in nature. Most of the pain is along the lateral aspect of his right shoulder. He reports mild weakness when lifting his right hand above shoulder height. He has had cortisone injections in the past which gave him fairly good relief. He wishes to hold off on surgery for now. Allergies No Known Allergies Allergy (Unknown, Verified 02/23/25 14:58) NOT APPLICABLE Medication List - Last Reconciled 02/24/25 by Waldo Lemon MD amlodipine 5 mg PO DAILY 90 days lisinopril 20 mg PO DAILY 90 days omeprazole 20 mg PO DAILY 90 days umeclidinium-vilanterol 62.5-25 mcg/actuation (Anoro Ellipta) 1 inh inhalation DAILY 60 days Ventolin HFA 90 mcg/actuation (albuterol sulfate) 2 puffs inhalation Q6H PRN 30 days NS PFSH Medical History (Updated 11/20/24 @ 09:32 by Waldo Lemon MD) Class 2 obesity with body mass index (BMI) of 37.0 to 37.9 in adult Right shoulder pain Chronic GERD Essential hypertension Surgical History No pertinent past surgical history Family History Father Hypertension Mother No problems noted. Maternal Grandfather Cancer Hypertension Diabetes Stroke Brother Drug overdose Family/Other FH: mental illness Social History (Updated 11/19/24 @ 14:06 by MAME Fields) Housing: House Alcohol intake: current Alcohol intake frequency: holidays/special occasions only Alcohol type: beer Patient Tobacco Use Status: Never used Tobacco e-Cigarette/Vaping Use: Never Used Second Hand Smoke Exposure: No service: No Current occupational status: employed Current occupation: rt handed, truck diver Cognitive needs: No Hearing needs: No Vision needs: No Physical Exam Vital Signs: BMI result Body Mass Index 36.9 Const Other: Well-nourished well-developed very friendly male awake alert and oriented x3 in no acute distress Extrem Other: Right shoulder examination shows slightly decreased range of motion when compared to his left shoulder, 4+ out of 5 strength with supraspinatus testing, positive impingement signs, no instability Office Procedures AMB Joint Injection/Aspiration Joint Injection/Aspiration Primary Site: right shoulder Prep: site was prepped using aseptic technique Injected: 40 mg of, DepoMedrol and 1% plain lidocaine Procedure: The patient tolerated the procedure well Coding - Large joint Procedure code (CPT) selection complete Assessment & Plan Assessment & Plan (1) Impingement of right shoulder: Code(s): M25.811 - Other specified joint disorders, right shoulder Category: Medical Plan Mr. Bay presents with right shoulder pain due to impingement syndrome. The risks and benefits of a right shoulder cortisone injection were discussed at length with the patient. The patient wished to proceed. He tolerated the injection well. He will continue with his home stretching program to prevent stiffness. He will contact me prior to his follow-up appointment in 3 months should any questions or concerns arise. Feel free to call me at any time should questions regarding his orthopedic management arise. I spent 21 minutes in reviewing the patient's records and imaging studies, seeing the patient and documenting in the medical record. Orders: Orders AMB Joint Injection/Aspiration 02/23/25 M25.811 - Other specified joint disorders, right shoulder Coding Level of Care Code Est Pt Level 3 (07877) Complex EM visit Add On G2211 Diagnoses Impingement of right shoulder M25.811 CPT Codes Coding - 17477 Large joint: 48132 - Large joint ([id number])
[2025-02-23 14:58] VITALS: BMI 36.9
--- OUTSIDE RECORDS SUMMARY | 2025-02-23 18:19 | XMS_ITS | Clinical Summary ---
Author Organization [facility] Address [address] [address] Phone Care Team Providers Care Privacy Compliance Manager Name Role Phone Pily Marc MD Primary Care Provid er Immunizations Immunization Administration Dates Next Due COVID-19 (Pre-04/01) Pfizer Vaccine, mRNA, PF ,09/22/2020 Social History Tobacco Use Types Packs/Day Years Used Date Smoking Tobacco: Never Assessed Education Answer Date Recorded Are you interested in more education? Not on bella e 10/06/2022 Are you concerned about learning? Not on file 10/06/2022 No 10/06/2022 No 10/06/2022 Digital Access Answer Date Recorded No 11/03/2022 No 11/03/2022 No 11/03/2022 Reliable internet access at home? Not on file 11/03/2022 Device with a working camera? Not on file Sex and Gender Information Value Date Recorded Sex Assigned at Not on file Legal Sex Male 6:11 PM EDT Gender Identity Not on file Sexual Orientation Not on file Plan of Treatment Health Maintenance Due Date Last Done Comments LIPID PANEL 1981 DEPRESSION SCREENING 1993 SMOKING Hx and SMOKELESS TOBACCO SCREENING 1994 HEPATITIS C SCREENING 08/12/1999 HIV ONE-TIME SCREENING (18-6 5 YEARS) 08/12/1999 INFLUENZA VACCINE (#1) 2025 COVID-19 VACCINE (2024-2 6 season) 2025 10/13/2020, 09/22/2020 Adult Td,Tdap Booster 01/01/2027 01/01/2017 HEPATITIS A VACCINES Aged Out No long er eligible based on patient's age to complete this topic HIB VACCINES Aged Out No longer eligi ble based on patient's age to complete this topic MENINGOCOCCAL VACCINES (ACWY) Aged Out No longer eligible based on patient's age to complete this topic MENINGOCOCCAL VACCINES (B) Aged Out N o longer eligible based on patient's age to complete this topic PNEUMOCOCCAL VACCINES (0-49 years) Aged Out No longer eligible b ased on patient's age to complete this topic Medical Devices Not on file [place] [address] [place] [address] [place] [address] [place] [address] [place] [address] [place] [address] [place] [address] [place] [address] ACO Member Subscriber Plan / Payer (Ef fective 2020-Present) Name:Umer Bay Relation to Subscriber:Self Name:Umer Bay Payer ID:[id number] Group ID:[id number] Type:Medicaid Address: [place] [id number] [facility] ACO Member Subscriber Plan / Payer (Ef fective 2020-Present) Name:Umer Bay Relation to Subscriber:Self Name:Umer Bay Payer ID:[id number] Group ID:[id number] Type:Medicaid Address: [place] [id number] Care Teams Privacy Compliance Manager Relationship Specialty Start Date End Date Pily Marc MD [address] [place] [address] PCP - General Internal Medicine 09/22/20 Additional Source Comments The information contained in this document represents components of the legal health record. It is not the complete legal health record.[facility]
== END 2025-02-23 15:23 | disposition home or self-care (01) ==
LOC: HO.HOS 14:38
PROVIDERS: PCP Internal Medicine; Visit Provider Orthopaedic Surgery
DX: M25.811 Other specified joint disorders, right shoulder (principal)
CPT/HCPCS: 20610; 99213

== ENCOUNTER → 2025-02-23 14:37 | Outpatient (BNVA) | payer OTHER, SELFPAY | PROVIDERS: PCP Internal Medicine; Visit Provider Orthopaedic Surgery | DX: M25.511 Pain in right shoulder (principal); M25.811 Other specified joint disorders, right shoulder | CPT/HCPCS: 20610; J1010; J2003 ==